=== PATIENT | female | born 1955 | race Caucasian/White ===

== ENCOUNTER 2016-06-12 10:37 | Emergency (ER) | payer OTHER ==
[~2016-06-12] VITALS: Ht 160 cm; Wt 93.8 kg
[~2016-06-12 10:37] MED LIST: AMLO-114 PO; CALC0.5C17 PO; CYCL10TA6 PO; FAMO40TA6 PO; HYDR-3714 PO; MCRK20 PO; METO1TAB69 PO; MOME50SP5 NAE; ROPI3TAB PO
[2016-06-12 10:49] VITALS: TEMP 36.4; Ht 160 cm; Wt 93.8 kg
[2016-06-12] MEDS ORDERED: SODIUM CHLORIDE 0.9% 1000ML 300 ML IV STA (11:00)
[2016-06-12 11:28] LABS: BASO % 0.1 %; BASO ABS # 0.02 K/uL (0-0.2); COMPLETE YES; EOS % 0.3 %; HEMATOCRIT 36.7 % (37-47); IG% 0.3 %; LYMPH % 8.8 %; LYMPH ABS # 1.29 K/uL (1.2-3.4); MEAN CELL VOLUME 90.8 fL (80-100); MEAN CORPUSCULAR HEMOGLOBIN 30.7 pg (25-34); MEAN CORPUSCULAR HGB CONC 33.8 g/dl (32-36); MEAN PLATELET VOLUME 9.5 fL (7.4-10.4); MONO % 5.1 %; NEUT % 85.4 %; PLATELET COUNT 278 K/uL (130-400); RED BLOOD COUNT 4.04 M/uL (4.2-5.4); WHITE BLOOD COUNT 14.71 K/uL (4.8-10.8)
--- NOTE | 2016-06-12 11:36 | DIAGNOSTIC IMAGING REPORT ---
CHEST ONE VIEW PORTABLE CLINICAL HISTORY: HYPOTENSION dyspnea COMPARISON STUDY: 01/16/2015 FINDINGS: Moderate stable cardiomegaly. Baseline emphysematous change. Multiple old bilateral rib fractures. IMPRESSION: Chronic and emphysematous change. No acute pulmonary abnormality. Electronically signed by: Fred Kang M.D. 06/12/2016 11:35 AM Dictated Date/Time: 06/12/2016 11:34 AM
[2016-06-12 11:44] LABS: ALT/SGPT 21 U/L (12-78); BLOOD UREA NITROGEN 49 mg/dl (7-18); BUN/CREATININE RATIO 19.6 (10-20); CALCIUM 9.4 mg/dl (8.5-10.1); CARBON DIOXIDE 24 mmol/L (21-32); CHLORIDE 103 mmol/L (98-107); GLUCOSE 187 mg/dl (70-99); POTASSIUM 4.1 mmol/L (3.5-5.1); SODIUM 137 mmol/L (136-145)
--- NOTE | 2016-06-12 11:52 | EMERGENCY ROOM VISIT NOTE ---
History Report prepared by Hector: Harini Duran Under the Supervision of: Dr. Eduin Sahu M.D. First contact with patient: 11:38 Chief Complaint: ABDOMINAL PAIN Stated Complaint: SYNCOPE/ABD PAIN/NAUSEA Nursing Triage Summary: PT PRESENTS FROM HOME VIA ALS. PT WAS EATING BREAKFAST WHEN SHE SUDDENLY DEVELOPED SEVERE 10/10 ABDOMINAL PAIN WITH ASSOCIATED DIARRHEA. PT WENT TO THE BATHROOM AND HAD TWO EPISODES OF DIARRHEA, DENIES SEEING ANY BLOOD IN STOOL. ABOMINAL PAIN PERSISTED, PT WENT BACK TO BED AND WAS SITTING ON THE EDGE OF THE BED WITH HER SISTER AT HER SIDE WHEN SHE HAD A SYNCOPAL EPISODE, NO INJURIES SUSTAINED. PT PRESENTS DIAPHORETIC, C/O DIFFUSE ABDOMINAL PAIN 10/10, HYPOTENSIVE WITH A SYSTOLIC BP IN THE 80'S. History of Present Illness The patient is a 60 year old female who presents to the Emergency Room with complaints of resolving abdominal pain that began prior to arrival. She currently rates her discomfort as a 10/10 in severity. The patient states that this morning she was eating breakfast when she started feeling nauseous. She states that she then began experiencing diarrhea and became diaphoretic. The patient states that she began experiencing diffuse abdominal pain, but denies any vomiting. She states that she had a vasovagal episode when she started getting sick. The patient states that her abdominal pain has gotten better, and states that she is feeling better. She denies any history of a cholecystectomy or an appendectomy. The patient denies any chance of . She states that she has a history of an open heart surgery. Source of History: patient Onset: prior to arrival Position: abdomen Symptom Intensity: 10/10 Timing: resolved Associated Symptoms: + diarrhea, + nausea, + sorethroat, No vomiting Note: Associated Symptoms: Vasovagal event. Review of Systems See HPI for pertinent positives & negatives. A total of 10 systems reviewed and were otherwise negative. 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 Family History Diabetes mellitus Hypertension Kidney disease Kidney stones Lung disease Social History Smoking Status: Never Smoker Smokeless Tobacco Use: No Alcohol Use: none Marital Status: Housing Status: lives with family Occupation Status: employed Current/Historical Medications Scheduled Calcitriol (Calcitriol), 0.5 MCG PO BID Famotidine (Pepcid), 20 MG PO DAILY Hydrochlorothiazide (Hydrochlorothiazide), 25 MG PO QAM Hydrocodon/Acetaminophen 7.5MG/300MG (Vicodin Es (7.5MG/300MG)), 1 TAB PO TID Levothyroxine Sodium (Levothyroxine Sodium), 150 MCG PO QAM Lisinopril (Lisinopril), 20 MG PO QAM Metoprolol Succ (Toprol Xl) (Toprol-Xl ), 150 MG PO QAM Mirabegron (Myrbetriq Er), 50 MG PO QAM Mometasone Furoate (Nasonex), 1 SPRAY GUILLE QAM Ropinirole (Requip), 3 MG PO HS Allergies Coded Allergies: Erythromycin (Verified Allergy, Intermediate, N/V, 06/12/16) Furosemide (Verified Allergy, Intermediate, rash , 06/12/16) Tramadol (Verified Allergy, Intermediate, N/V, 06/12/16) Adhesives (Verified Allergy, Unknown, contact dermatitis, 06/12/16) Physical Exam Vital Signs Date Time Temp Pulse Resp B/P Pulse Ox O2 Delivery O2 Flow Rate FiO2 06/12/16 13:36 98 20 113/59 98 Room Air 06/12/16 12:44 74 16 97/54 99 Room Air 06/12/16 11:43 76 98/61 06/12/16 10:49 36.4 64 18 88/59 100 Room Air 06/12/16 10:48 67 Physical Exam GENERAL: Patient is a healthy-appearing well-nourished HEAD: Normocephalic atraumatic EYES: Ocular movements intact pupils equal and react to light OROPHARYNX mucous membranes are moist no exudates present no erythema or edema present NECK: Supple no nuchal rigidity CHEST: Good equal expansion LUNGS: Clear and equal to auscultation CARDIAC: Grade 2/6 systolic murmur. ABDOMEN: Soft nontender no guarding BACK: No CVA tenderness EXTREMITIES: No pain upon palpation normal muscle strength in all groups no clubbing cyanosis or edema NEURO: Patient is following commands is answering questions appropriately. Alert and oriented x3 Cranial Nerves 2-12 grossly intact Medical Decision & Procedures ER Provider Diagnostic Interpretation: X-ray results as stated below per interpretation by me and the radiologist: CT HEAD WITHOUT CONTRAST (CT) CLINICAL HISTORY: Severe headache COMPARISON STUDY: 09/23/2007 TECHNIQUE: Axial CT of the brain is performed from the vertex to the skull base. IV contrast was not administered for this examination. CT DOSE: 823.94 mGycm FINDINGS: No intra or extra-axial mass lesions are visualized. There is no CT evidence of acute cortical infarction. There is no evidence of midline shift. There is no acute hemorrhage. No calvarial fractures are visualized. There are minor white matter hypodensities likely on a small vessel basis. There is no evidence of pathologic ventricular dilatation. There are postsurgical changes present. There is complete opacification of the left maxillary sinus. There is moderate mucosal thickening within the right maxillary sinus. There is sphenoid sinus mucosal thickening. There are postsurgical changes of a prior partial ethmoidectomy. IMPRESSION: 1. Inflammatory changes within the paranasal sinuses 2. No acute intracranial findings Electronically signed by: Alli Kraft M.D. 06/12/2016 12:03 PM Dictated Date/Time: 06/12/2016 12:02 PM Laboratory Results 06/12/16 11:15 Red Blood Count 4.04, Mean Corpuscular Volume 90.8, Mean Corpuscular Hemoglobin 30.7, Mean Corpuscular Hemoglobin Concent 33.8, Mean Platelet Volume 9.5, Neutrophils (%) (Auto) 85.4, Lymphocytes (%) (Auto) 8.8, Monocytes (%) (Auto) 5.1, Eosinophils (%) (Auto) 0.3, Basophils (%) (Auto) 0.1, Neutrophils # (Auto) 12.57, Lymphocytes # (Auto) 1.29, Monocytes # (Auto) 0.75, Eosinophils # (Auto) 0.04, Basophils # (Auto) 0.02 06/12/16 11:15 Test 06/12/16 11:15 White Blood Count 14.71 K/uL (4.8-10.8) Red Blood Count 4.04 M/uL (4.2-5.4) Hemoglobin 12.4 g/dL (12.0-16.0) Hematocrit 36.7 % (37-47) Mean Corpuscular Volume 90.8 fL (80-100) Mean Corpuscular Hemoglobin 30.7 pg (25-34) Mean Corpuscular Hemoglobin Concent 33.8 g/dl (32-36) Platelet Count 278 K/uL (130-400) Mean Platelet Volume 9.5 fL (7.4-10.4) Neutrophils (%) (Auto) 85.4 % Lymphocytes (%) (Auto) 8.8 % Monocytes (%) (Auto) 5.1 % Eosinophils (%) (Auto) 0.3 % Basophils (%) (Auto) 0.1 % Neutrophils # (Auto) 12.57 K/uL (1.4-6.5) Lymphocytes # (Auto) 1.29 K/uL (1.2-3.4) Monocytes # (Auto) 0.75 K/uL (0.11-0.59) Eosinophils # (Auto) 0.04 K/uL (0-0.5) Basophils # (Auto) 0.02 K/uL (0-0.2) RDW Standard Deviation 45.2 fL (36.4-46.3) RDW Coefficient of Variation 13.7 % (11.5-14.5) Immature Granulocyte % (Auto) 0.3 % Immature Granulocyte # (Auto) 0.04 K/uL (0.00-0.02) Anion Gap 10.0 mmol/L (3-11) Est Creatinine Clear Calc Drug Dose 26.4 ml/min Estimated GFR () 23.6 Estimated GFR (Non- 20.4 BUN/Creatinine Ratio 19.6 (10-20) Calcium Level 9.4 mg/dl (8.5-10.1) Total Bilirubin 0.4 mg/dl (0.2-1) Aspartate Amino Transf (AST/SGOT) 21 U/L (15-37) Alanine Aminotransferase (ALT/SGPT) 21 U/L (12-78) Alkaline Phosphatase 122 U/L (45-117) Total Creatine Kinase 176 U/L (26-192) Creatine Kinase MB 2.4 ng/ml (0.5-3.6) Creatine Kinase MB Ratio 1.4 (0-3.0) Troponin I < 0.015 ng/ml (0-0.045) Total Protein 7.7 gm/dl (6.4-8.2) Albumin 3.6 gm/dl (3.4-5.0) Globulin 4.1 gm/dl (2.5-4.0) Albumin/Globulin Ratio 0.9 (0.9-2) Lipase 383 U/L (73-393) Thyroid Stimulating Hormone (TSH) 0.028 uIu/ml (0.300-4.500) Labs reviewed by ED physician. Medications Administered Medications (Trade) Dose Ordered Sig/Cara Route Start Time Stop Time Status Last Admin Dose Admin Sodium Chloride 300 ml @ 999 mls/hr Q19M STAT IV 06/12/16 11:00 06/12/16 11:18 DC 06/12/16 11:00 999 MLS/HR Sodium Chloride (Nss 1000ml) 1,000 ml @ 999 mls/hr Q1H1M STAT IV 06/12/16 11:53 06/12/16 12:53 DC 06/12/16 11:53 999 MLS/HR ECG Indication: abdominal pain, diaphoresis, nausea Rate (beats per minute): 63 Rhythm: normal sinus Findings: no acute ischemic change, no ectopy ED Course 1100: Ordered Sodium Chloride 1000 ml @ 999 mls/hr IV. 1143: Past medical records reviewed. The patient was evaluated in room B6. A complete history and physical examination was performed. 1153: Ordered Sodium Chloride 1000 ml @ 999 mls/hr IV. 1251: Per nursing staff the patient is feeling well and wanting to go home. 1320: I reevaluated the patient and she is doing well. I discussed all the exam findings with her and I discussed the treatment plan. She verbalized complete understanding and agreement. She is ready to go home. Medical Decision Differential diagnosis: Etiologies such as vasovagal event, infection, hypoglycemia, electrolyte abnormalities, cardiac sources, intracerebral event, toxicologic, neurologic, as well as others were entertained. This is a 60-year-old female who presents emergency department after vasovagal episode after having a large bowel movement. Serial abdominal examinations were performed on the patient in the emergency department and no tended the patient exhibit a surgical abdomen. Patient had a CT the head which was normal , she has normal CBC normal renal profile with the exception of her creatinine which is elevated. She was given 2 L normal saline bolus in the emergency department. I believe based on these findings at the patient can be safely discharged home. I recommended probiotic yogurt for the diarrhea. Patient was in agreement with the treatment plan. Impression Primary Impression: Dehydration Additional Impressions: Diarrhea Vasovagal episode Scribe Attestation The scribe's documentation has been prepared under my direction and personally reviewed by me in its entirety. I confirm that the note above accurately reflects all work, treatment, procedures, and medical decision making performed by me. Departure Information Dispostion Home / Self-Care Referrals No Doctor, Assigned (PCP) Forms Call Back Authorization, HOME CARE DOCUMENTATION FORM, IMPORTANT VISIT INFORMATION, School Instructions, Work Instructions Patient Instructions ED Diarrhea Viral, My [facility], Treatment for Vasovagal Syncope, Understanding Vasovagal Syncope Additional Instructions Increase fluid intake next 48 hours You have been examined and treated today on an emergency basis only. This is not a substitute for, or an effort to provide, complete comprehensive medical care. It is impossible to recognize and treat all injuries or illnesses in a single emergency department visit. It is therefore important that you follow up closely with your PCP. Call as soon as possible for an appointment. Thank you for your time and consideration. I look forward to speaking with you again soon. Please don't hesitate to call us if you have any questions. Problem Qualifiers Additional Impressions: Diarrhea Diarrhea type: unspecified type Qualified Codes: R19.7 - Diarrhea, unspecified
[2016-06-12] MEDS ORDERED: SODIUM CHLORIDE 0.9% 1000ML 1,000 ML IV STA (11:53)
[2016-06-12] MEDS ORDERED: ONDANSETRON INJ 2 MG/ML 2 ML VIAL IV STA (11:53)
[2016-06-12 11:54] LABS: ALB/GLOB RATIO 0.9 (0.9-2); ALKALINE PHOSPHATASE 122 U/L (45-117); AST/SGOT 21 U/L (15-37); CKMB/CK RATIO 1.4 (0-3.0); THYROID STIMULATING HORMONE 0.028 uIu/ml (0.300-4.500)
[2016-06-12] MEDS ORDERED: MIRA1TAB3 PO (12:54)
[2016-06-12] MEDS ORDERED: LEVO150T9 PO (12:54)
[2016-06-12] MEDS ORDERED: HYDR25TA5 PO (12:54)
[2016-06-12] MEDS ORDERED: LSN20 PO (12:54)
[2016-06-12 13:36] VITALS: BP 113/59; PULSE 98; O2SAT 98
== END 2016-06-12 13:38 | disposition home or self-care (01) ==
LOC: EDBD 10:37 → C.EDB 10:38
DX: E86.0 Dehydration (principal); R19.7 Diarrhea, unspecified; R55 Syncope and collapse; N18.9 Chronic kidney disease, unspecified; I12.9 Hypertensive chronic kidney disease with stage 1 through stage 4 chronic kidney disease, or unspecified chronic kidney disease; Z83.3 Family history of diabetes mellitus; Z82.49 Family history of ischemic heart disease and other diseases of the circulatory system; Z79.899 Other long term (current) drug therapy

== ENCOUNTER → 2016-11-11 | Outpatient (CLI) | payer OTHER ==
[~2016-11-11] MED LIST changes: -AMLO-114 PO; -CYCL10TA6 PO; +HYDR25TA5 PO; +LEVO150T9 PO; +LSN20 PO; -MCRK20 PO; +MIRA1TAB3 PO
[2016-11-11 12:16] LABS: HEMATOCRIT 29.7 % (37-47); MEAN CELL VOLUME 92.5 fL (80-100); MEAN CORPUSCULAR HEMOGLOBIN 30.2 pg (25-34); MEAN CORPUSCULAR HGB CONC 32.7 g/dl (32-36); MEAN PLATELET VOLUME 9.9 fL (7.4-10.4); PLATELET COUNT 230 K/uL (130-400); RED BLOOD COUNT 3.21 M/uL (4.2-5.4); WHITE BLOOD COUNT 5.36 K/uL (4.8-10.8)
[2016-11-11 12:32] LABS: BLOOD UREA NITROGEN 70 mg/dl (7-18); BUN/CREATININE RATIO 26.8 (10-20); CALCIUM 10.9 mg/dl (8.5-10.1); CARBON DIOXIDE 27 mmol/L (21-32); CHLORIDE 104 mmol/L (98-107); GLUCOSE 126 mg/dl (70-99); POTASSIUM 4.1 mmol/L (3.5-5.1); SODIUM 140 mmol/L (136-145)
[2016-11-11 12:43] LABS: PHOSPHORUS 4.9 mg/dl (2.5-4.9)
[2016-11-11 13:31] LABS: URINE APPEARANCE CLEAR (CLEAR); URINE BILIRUBIN NEG (NEG); URINE COLOR YELLOW; URINE EPITHELIAL CELL AUTO >30 /lpf (0-5); URINE NITRITE NEG (NEG); URINE SPECIFIC GRAVITY 1.023 (1.000-1.030); UROBILINOGEN NEG (NEG)
[2016-11-11 13:38] LABS: MANUAL MICROSCOPIC REQUIRED? NO; REVIEW REQ? NO
[2016-11-11 14:05] LABS: URINE PROTIEN/CREAT RATIO 0.3 (0-0.2); URINE TOTAL PROTEIN 26.5 mg/dl (0-11.9)
== END | disposition home or self-care (01) ==
LOC: C.LAB1850 10:27
PROVIDERS: ATTEND Internal Medicine Nephrology
DX: N18.3 Chronic kidney disease, stage 3 (moderate) (principal); E03.9 Hypothyroidism, unspecified; E20.1 Pseudohypoparathyroidism

== ENCOUNTER → 2016-11-13 | Outpatient (CLI) | payer OTHER ==
[2016-11-13 10:17] LABS: BLOOD UREA NITROGEN 63 mg/dl (7-18); BUN/CREATININE RATIO 26.4 (10-20); CALCIUM 10.6 mg/dl (8.5-10.1); CARBON DIOXIDE 27 mmol/L (21-32); CHLORIDE 101 mmol/L (98-107); GLUCOSE 114 mg/dl (70-99); PHOSPHORUS 4.7 mg/dl (2.5-4.9); POTASSIUM 3.9 mmol/L (3.5-5.1); SODIUM 137 mmol/L (136-145)
== END | disposition home or self-care (01) ==
LOC: C.LAB1850 09:07
PROVIDERS: ATTEND Internal Medicine Nephrology
DX: E83.52 Hypercalcemia (principal)

== ENCOUNTER → 2016-12-17 | Outpatient (CLI) | payer OTHER ==
[2016-12-17 11:06] LABS: BLOOD UREA NITROGEN 35 mg/dl (7-18); CALCIUM 8.4 mg/dl (8.5-10.1); CARBON DIOXIDE 27 mmol/L (21-32); CHLORIDE 105 mmol/L (98-107); GLUCOSE 119 mg/dl (70-99); POTASSIUM 3.9 mmol/L (3.5-5.1); SODIUM 137 mmol/L (136-145)
[2016-12-17 11:16] LABS: THYROID STIMULATING HORMONE 0.299 uIu/ml (0.300-4.500)
== END | disposition home or self-care (01) ==
LOC: C.LAB1850 09:15
PROVIDERS: ATTEND Internal Medicine Endocrinology, Diabetes & Metabolism
DX: N18.3 Chronic kidney disease, stage 3 (moderate) (principal); E03.9 Hypothyroidism, unspecified; E20.1 Pseudohypoparathyroidism

== ENCOUNTER → 2017-07-08 | Outpatient (CLI) | payer OTHER ==
[~2017-07-08] MED LIST changes: +CALC0.5C PO; -CALC0.5C17 PO; +METO100T44 PO; -METO1TAB69 PO
[2017-07-08 17:03] LABS: ALBUMIN 3.8 gm/dl (3.4-5.0); BLOOD UREA NITROGEN 52 mg/dl (7-18); CARBON DIOXIDE 31 mmol/L (21-32); CREATININE 2.02 mg/dl (0.60-1.20); GLUCOSE 83 mg/dl (70-99); PHOSPHORUS 4.8 mg/dl (2.5-4.9); POTASSIUM 4.1 mmol/L (3.5-5.1); SODIUM 139 mmol/L (136-145)
== END | disposition home or self-care (01) ==
LOC: C.LAB1850 15:25
PROVIDERS: ATTEND Internal Medicine Nephrology
DX: N18.3 Chronic kidney disease, stage 3 (moderate) (principal)